=== PATIENT | male | born 1985 | race Caucasian/White ===

== ENCOUNTER 2016-10-06 08:26 | Emergency (ER) | payer OTHER ==
[~2016-10-06] VITALS: Ht 177.8 cm; Wt 120.0 kg
[~2016-10-06 08:26] MED LIST: FENO145T19 PO; LOPE2CAP PO; ONDA4TAB14 PO; SITA50TA2 PO
[2016-10-06 08:30] VITALS: Ht 177.8 cm; Wt 120.0 kg
[2016-10-06] MEDS ORDERED: MECLIZINE 12.5 MG TAB PO ONE (09:30)
--- NOTE | 2016-10-06 10:11 | ERD ---
ER Documentation Chief Complaint Date/Time DATE: 10/06/16 TIME: 10:10 Chief Complaint feels dizzy today HPI Is a 30-year-old male who presents the emergency department today complaining of dizziness that started last night. Patient states when he woke up this morning he felt dizzy and like the room was spinning. States he has had some nausea but no vomiting. States he has a history of diabetes but does not take medication as he has been drinking alcohol. Denies any fevers or chills, blurred vision, headache ROS All systems reviewed and are negative except as per history of present illness. Medications Home Meds Active Scripts Meclizine Hcl* (Antivert*) 12.5 Mg Tab, 12.5 MG PO Q6H Y for DIZZINESS, #20 TAB Prov:CHAR MATUTE PA-C 10/06/16 Loperamide Hcl* (Imodium*) 2 Mg Capsule, 2 MG PO .WITH EACH DIARRHEA Y for DIARRHEA, #10 CAP MAX 16 mg/day Prov:GRISELDA ORDAZ PA-C 04/26/16 Ondansetron (Ondansetron Odt) 4 Mg Tab.rapdis, 4 MG PO Q6H Y for NAUSEA AND/OR VOMITING, #10 TAB Prov:GRISELDA ORDAZ PA-C 04/26/16 Fenofibrate Nanocrystallized* (Fenofibrate*) 145 Mg Tablet, 145 MG PO DAILY for 30 Days, TAB Prov:CATALINO DESIR NP 03/12/16 Sitagliptin* (Januvia*) 50 Mg Tablet, 50 MG PO DAILY, #30 TAB Prov:CATALINO DESIR NP 03/12/16 Allergies Allergies: Coded Allergies: No Known Allergy (Unverified , 10/06/16) PMhx/Soc History of Surgery: No Anesthesia Reaction: No Hx Neurological Disorder: No Hx Respiratory Disorders: No Hx Cardiac Disorders: No Hx Psychiatric Problems: No Hx Miscellaneous Medical Probl: Yes (DM) Hx Alcohol Use: Yes (6 pack /day) Hx Substance Use: No Hx Tobacco Use: Yes Smoking Status: Current every day smoker Physical Exam Vitals Vital Signs Date Time Temp Pulse Resp B/P Pulse Ox O2 Delivery O2 Flow Rate FiO2 10/06/16 08:30 97.8 78 20 132/80 99 Physical Exam Const: No acute distress, sitting up, talkative Head: Atraumatic Eyes: Normal Conjunctiva. PERRLA. EOM intact ENT: Ears TMs normal. Nose no drainage. Throat no erythema no exudate Neck: Full range of motion..~ No meningismus. Resp: Clear to auscultation bilaterally Cardio: Regular rate and rhythm, no murmurs Abd: Soft, non tender, non distended. Normal bowel sounds Skin: No petechiae or rashes Neur: Awake and alert. Cranial nerves II through XII intact per no gait ataxia peer Psych: Normal Mood and Affect Results 24 hrs Laboratory Tests Test 10/06/16 09:40 Bedside Glucose 161mg/dL Current Medications Medications (Trade) Dose Ordered Sig/Vincenzo Route PRN Reason Start Time Stop Time Status Last Admin Dose Admin Meclizine HCl (Antivert) 25 mg ONCE ONCE PO 10/06/16 09:30 10/06/16 09:31 DC 10/06/16 09:36 Procedures/MDM This is a 30-year-old male who presents to the emergency department today complaining of dizziness that started last night. When I walked into the patient's room patient was sitting up talking on the phone and I had to come back to the room as patient did not appear to be in any acute distress. patient does have a history of diabetes and therefore I did obtain an Accu-Chek as well as an EKG. Accu-Chek 161. Low suspicion for hyperglycemia or hypoglycemia. EKG read and interpreted by Dr. Morrison rate [address] elevation. No QT prolongation. Normal sinus rhythm. Low suspicion for acute KS, PE, pericarditis Patient did indicate that his dizziness was better upon coming to the emergency department and he did not feel as unsteady. I did give the patient meclizine and patient reported some somatic improvement.. Patient is afebrile and otherwise well-appearing. He denies any headache, blurred vision I do not feel the patient requires a head CT scan at this time. Patient had no focal neurologic deficits and no gait ataxia. Low suspicion for acute hemorrhage, mass, abscess. Patient stated that his dizziness was more positional going from laying down to sitting up this morning. Patient symptoms at this time is consistent with positional vertigo. Low suspicion for central cause of vertigo. Low suspicion for electrolyte abnormality,, sepsis or severe acute bacterial infection. Patient was instructed to drink more water. He was instructed to stop drinking alcohol At this time the patient is stable for discharge and outpatient management. Patient should follow up with their PCP in the next 1-2 days. They may return to the emergency department sooner for any persistent or worsening of symptoms. Patient understood and agreed with the plan. Departure Diagnosis: Primary Impression: Dizziness Condition: Fair CHAR MATUTE PA-C Oct 06, 2016 10:10
[2016-10-06] MEDS ORDERED: MECL12.574 PO (10:40)
== END 2016-10-06 10:57 | disposition home or self-care (01) ==
LOC: FTE 08:26
DX: R42 Dizziness and giddiness (principal); F17.210 Nicotine dependence, cigarettes, uncomplicated; E11.9 Type 2 diabetes mellitus without complications; Z79.84 Long term (current) use of oral hypoglycemic drugs
CPT/HCPCS: 82962; 93005; Z7502; Z7610

== ENCOUNTER 2017-04-28 08:07 | Emergency (ER) | payer OTHER ==
[~2017-04-28] VITALS: Ht 175.3 cm; Wt 108.0 kg
[~2017-04-28 08:07] MED LIST changes: +MECL12.574 PO
[2017-04-28 08:11] VITALS: Ht 175.3 cm; Wt 108.0 kg
--- NOTE | 2017-04-28 08:27 | ERD ---
ER Documentation Chief Complaint Chief Complaint LOWER BACK PAIN S/P INJURY THIS MORNING HPI 31 y/o male previously healthy presents to the ED c/o acute onset of lower back pain 2 hours ago, worse on the right side. 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 No direct trauma.. Pain is sharp, 8/10, worsened by lateral rotation. treatment attempted: None. Denies limb weakness, numbness or incontinence. No urinary symptoms ROS All systems reviewed and are negative except as per history of present illness. Medications Home Meds Active Scripts Hydrocodone/Acetaminophen ([place] 5-325 Tablet) 1 Each Tablet, 1 TAB PO Q8 Y for SEVERE PAIN LEVEL 7-10, #12 TAB Prov:DARCY PARK MD 04/28/17 Baclofen* (Baclofen*) 10 Mg Tablet, 10 MG PO TID for MUSCLE SPASMS for 7 Days, # 21 TAB Prov:DARCY PARK MD 04/28/17 Ibuprofen* (Motrin*) 600 Mg Tab, 600 MG PO Q8 for 5 Days, #30 TAB Prov:DARCY PARK MD 04/28/17 Meclizine Hcl* (Antivert*) 12.5 Mg Tab, 12.5 MG PO Q6H Y for DIZZINESS, #20 TAB Prov:CHAR MATUTE PA-C 10/06/16 Loperamide Hcl* (Imodium*) 2 Mg Capsule, 2 MG PO .WITH EACH DIARRHEA Y for DIARRHEA, #10 CAP MAX 16 mg/day Prov:GRISELDA ORDAZ PA-C 04/26/16 Ondansetron (Ondansetron Odt) 4 Mg Tab.rapdis, 4 MG PO Q6H Y for NAUSEA AND/OR VOMITING, #10 TAB Prov:GRISELDA ORDAZ PA-C 04/26/16 Fenofibrate Nanocrystallized* (Fenofibrate*) 145 Mg Tablet, 145 MG PO DAILY for 30 Days, TAB Prov:CATALINO DESIR NP 03/12/16 Sitagliptin* (Januvia*) 50 Mg Tablet, 50 MG PO DAILY, #30 TAB Prov:CATALINO DESIR NP 03/12/16 Allergies Allergies: Coded Allergies: No Known Allergy (Unverified , 10/06/16) PMhx/Soc SYSTEMIC symptoms: No fever, no chills, no night sweats EYE symptoms: No eyesight problems. OTOLARYNGEAL symptoms: No hearing loss. CARDIOVASCULAR symptoms: No chest pain or discomfort, no palpitations. PULMONARY symptoms: No dyspnea, no cough, no wheezing. GASTROINTESTINAL symptoms: No abdominal pain, no nausea, no vomiting SKIN no rashes NEUROLOGY symptoms: No headache, no confusion, no syncope, no numbness or tingling. History of Surgery: No Anesthesia Reaction: No Hx Neurological Disorder: No Hx Respiratory Disorders: No Hx Cardiac Disorders: No Hx Psychiatric Problems: No Hx Miscellaneous Medical Probl: Yes (DM) Hx Alcohol Use: Yes (6 pack /day) Hx Substance Use: No Hx Tobacco Use: Yes Physical Exam Vitals Vital Signs Date Time Temp Pulse Resp B/P Pulse Ox O2 Delivery O2 Flow Rate FiO2 04/28/17 08:11 97.5 70 17 142/76 96 Physical Exam Const: Alert, oriented, in mild distress due to pain. Head: Atraumatic Eyes: Normal Conjunctiva ENT: Normal External Ears, Nose and Mouth. Neck: Full range of motion..~ No meningismus. Resp: Clear to auscultation bilaterally Cardio: Regular rate and rhythm, no murmurs Abd: Soft, non tender, non distended. 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 Neurovascular intact. No deformity, no edema. Most likely musculoskeletal. Differential diagnosis: lumbar sprain/strain, sciatica, herniated disk. The patient received Toradol IM with improvement of the pain. The patient will be DC home with a Rx for Baclofen, Ibuprofen and [place] #12. The patient was instructed to follow up with PCP in 2-4 days, if the doctor is unavailable and the symptoms persist or worsen, the patient should return to the hospital immediately. Departure Diagnosis: Primary Impression: Injury of back Additional Impression: Acute lumbar back pain Condition: Stable Patient Instructions: Back Sprain/Strain Additional Instructions: Thank you very much for allowing us to participate in your care. It was a pleasure seen you today here at [facility]. Please schedule a follow up appointment with your primary doctor in 2 days and bring all the information and prescriptions that we have given to you today. If the doctor is unavailable and the symptoms persist or worsen, the patient should return to the hospital immediately. DARCY PARK MD Apr 28, 2017 08:27
[2017-04-28] MEDS ORDERED: KETOROLAC 60 MG INJ IM STA (08:35)
[2017-04-28] MEDS ORDERED: BACL10TA PO (08:55)
[2017-04-28] MEDS ORDERED: HYDR-906 PO (08:55)
[2017-04-28] MEDS ORDERED: IBUP-1542 PO (08:55)
== END 2017-04-28 09:13 | disposition home or self-care (01) ==
LOC: FTE 08:07
DX: S39.92XA Unspecified injury of lower back, initial encounter (principal); E11.9 Type 2 diabetes mellitus without complications; X50.0XXA Overexertion from strenuous movement or load, initial encounter; Y92.89 Other specified places as the place of occurrence of the external cause; Z79.84 Long term (current) use of oral hypoglycemic drugs; Z87.891 Personal history of nicotine dependence
CPT/HCPCS: 96372; J1885; Z7502

== ENCOUNTER 2018-03-21 12:25 | Emergency (ER) | END 2018-03-21 15:50 | disposition home or self-care (01) ==